=== PATIENT | female | born 1995 | race Caucasian/White ===

== ENCOUNTER 2021-12-27 18:11 | Emergency (ER) | payer BC, SELFPAY ==
[2021-12-27] VITALS (13 sets, daily range): BP systolic 105–156; BP diastolic 77–106; PULSE 71–108; RESP 14–24; TEMP 36.5–37; O2SAT 98–100
--- NOTE | ~2021-12-27 | XR_ITS ---
XR elbow LT 2V 12/27/2021 18:37 INDICATION: Left elbow pain PROCEDURE: 2 views left elbow COMPARISON: No prior studies for comparison. FINDINGS: Fracture, dislocation or subluxation is not identified. The soft tissues appear within norm al limits. No foreign bodies are identified. IMPRESSION: 1: NO ACUTE BONE OR JOINT ABNORMALITY IDENTIFIED. Reviewed, dictated and finalized at location A.
--- NOTE | ~2021-12-27 | XR_ITS ---
XR wrist LT 2V 12/27/2021 18:36 Indication: Left wrist pain after fall Procedure: 2 views left wrist Comparison: No prior studies for comparison. Findings: There is a comminuted displaced intra-articular fracture of the distal aspect of the radius . There is a displaced ulnar styloid avulsion fracture. Moderate soft tissue swelling surrounding the fractures. No foreign bodies. Impression: 1: Comminuted intra-articular fracture of the distal aspect of the radius with ventral displacement. 2: Displaced ulnar styloid avulsion fracture. Reviewed, dictated and finalized at location A. Impression: 1: Comminuted intra-articular fracture of the distal aspect of the radius with ventral displacement. 2: Displaced ulnar styloid avulsion fracture.
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
[2021-12-27] MEDS: SODIUM CHLORIDE 0.9% IV 1,000 ML 30 ML IV CONT (19:37)
--- NOTE | 2021-12-27 19:39 | PC.NURSE ---
VORB to draw up 50mg of propofol, and 50mg of ketamine.
[2021-12-27] MEDS: KETAMINE HCL (*CRX) 500 MG/10 ML VIAL 40 MG IV PUSH (19:45)
[2021-12-27] MEDS: PROPOFOL IV EMULSION 200 MG/20 ML VIAL 40 MG IV PUSH (19:45)
== END 2021-12-27 21:07 | disposition home or self-care (01) ==
PROVIDERS: Emergency Provider Nurse Practitioner Family
DX: S52.572A Other intraarticular fracture of lower end of left radius, initial encounter for closed fracture (principal); S50.02XA Contusion of left elbow, initial encounter; S30.811A Abrasion of abdominal wall, initial encounter; V89.0XXA Person injured in unspecified motor-vehicle accident, nontraffic, initial encounter
CPT/HCPCS: 25605; 73070; 73100; 96361; 96374; 96375; 99285; A4565; J2704; J7030